=== PATIENT | male | born 1985 | race Caucasian/White ===

== ENCOUNTER 2017-06-13 11:25 | Emergency (ER) | payer SELFPAY ==
[2017-06-13 11:51] VITALS: BP 130/84
--- NOTE | 2017-06-13 12:36 | EDM.PDOC ---
ED HPI GENERAL MEDICAL PROBLEM - General Chief Complaint: ENT Problem Stated Complaint: TOOTH PAIN Time Seen by Provider: 06/13/17 12:31 Source of Information: Reports: Patient, Old Records, RN Notes Reviewed History Limitations: Reports: No Limitations - History of Present Illness INITIAL COMMENTS - FREE TEXT/NARRATIVE: 32-year-old gentleman presents emergency department a complaint of dental pain, he has been working with a dentist and oral surgeon the story was verified his biggest issue is pain control this is tooth #19 which is partially exposed nerve , he is currently working with Dr. Joey Pisano oral surgeon Soniya Jacome currently on amoxicillin 10 day course, Tooth/Teeth Pain Score (Numeric/FACES): 8 - Related Data Allergies Allergy/AdvReac Type Severity Reaction Status Date / Time Sulfa (Sulfonamide Allergy Rash Verified 06/13/17 11:45 Antibiotics) Home Meds: Home Meds Amoxicillin 1 tab PO BID 06/13/17 [History] Past Medical History - Past Health History Medical/Surgical History: Denies Medical/Surgical History Social & Family History - Tobacco Use Smoking Status *Q: Light Tobacco Smoker Years of Tobacco use: 15 Packs/Tins Daily: 0.5 - Recreational Drug Use Recreational Drug Use: No ED ROS ENT - Review of Systems Review Of Systems: See Below Constitutional: Denies: Fever HEENT: Reports: Dental Pain ED EXAM, ENT - Physical Exam Exam: See Below Text/Narrative:: Mouth mucosa is moist and pink no erythema or exudate known soft palate tongue is midline uvula is midline tooth #19 is broken and tender Exam Limited By: No Limitations General Appearance: Alert, WD/WN, No Apparent Distress Head: Atraumatic, Normocephalic Neck: Normal Inspection, Supple, Non-Tender, Full Range of Motion Course - Vital Signs Last Recorded V/S: Last Vital Signs Temp 94.8 F L 06/13/17 11:43 Pulse 67 06/13/17 11:43 Resp 16 06/13/17 11:43 BP 130/84 06/13/17 11:43 Pulse Ox 98 06/13/17 11:43 Departure - Departure Time of Disposition: 12:35 Disposition: Home, Self-Care 01 Condition: Good Clinical Impression: Pain, dental - Discharge Information Forms: ED Department Discharge Additional Instructions: Use Percocet as needed in combination with ibuprofen, please contact your oral surgeon for further follow-up - Assessment/Plan Plan: Assessment Acuity = acute Site and laterality = broken molar #19 Etiology = secondary to caries Manifestations = pain Location of injury = Home Lab values = none Plan Prescription granted for Percocet No. 20 have asked him to contact his oral surgeon for further follow-up Patient was in agreement with the plan all questions were answered, they were instructed to return to the emergency department or call for worsening symptoms. This note was dictated using [employer] voice recognition software please call with any questions.
== END 2017-06-13 12:41 | disposition home or self-care (01) ==
LOC: JP.ED 11:25
DX: K02.9 Dental caries, unspecified (principal); Z88.2 Allergy status to sulfonamides; F17.210 Nicotine dependence, cigarettes, uncomplicated
CPT/HCPCS: 99283

== ENCOUNTER 2019-11-23 16:36 | Emergency (ER) | payer MEDICAID ==
[2019-11-23 16:58] VITALS: BP 127/64; PULSE 58
--- NOTE | 2019-11-23 17:20 | EDM.PDOC ---
ED HPI GENERAL MEDICAL PROBLEM - General Chief Complaint: ENT Problem Stated Complaint: LEFT SIDE CHIPPED TOOTH Time Seen by Provider: 11/23/19 17:05 Source of Information: Reports: Patient, Old Records, RN History Limitations: Reports: No Limitations - History of Present Illness INITIAL COMMENTS - FREE TEXT/NARRATIVE: 34 yo male with a severely decayed L posterior most mandibular molar had it break off last night. Had some early L sided facial swelling start today. No fever. Wants an antibiotic until he can see his dentist. 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) Left Lower Face/Facial Pain Score (Numeric/FACES): 5 - Related Data Allergies Allergy/AdvReac Type Severity Reaction Status Date / Time amoxicillin Allergy Rash Verified 11/23/19 17:01 Sulfa (Sulfonamide Allergy Rash Verified 06/13/17 11:45 Antibiotics) Home Meds: Home Meds Clindamycin HCl 300 mg PO Q8H #30 capsule 11/23/19 [Rx] Past Medical History - Past Health History Medical/Surgical History: Denies Medical/Surgical History Social & Family History - Tobacco Use Smoking Status *Q: Heavy Tobacco Smoker Years of Tobacco use: 15 Packs/Tins Daily: 1 - Caffeine Use Caffeine Use: Reports: Energy Drinks - Recreational Drug Use Recreational Drug Use: No ED ROS ENT - Review of Systems Review Of Systems: See Below Constitutional: Reports: No Symptoms HEENT: Reports: Other (L facial swelling earlier) Respiratory: Reports: No Symptoms Cardiovascular: Reports: No Symptoms GI/Abdominal: Reports: No Symptoms Skin: Reports: No Symptoms Neurological: Reports: No Symptoms ED EXAM, ENT - Physical Exam Exam: See Below Exam Limited By: No Limitations General Appearance: Alert, WD/WN, No Apparent Distress Eye Exam: Bilateral Eye: Normal Inspection Ears: Normal External Exam, Normal Canal, Hearing Grossly Normal, Normal TMs Nose: Normal Inspection, No Blood Mouth/Throat: Other (L posterior molar is broken off and decays. No visible facial swelling now. ) Head: Atraumatic, Normocephalic Neck: Normal Inspection. No: Lymphadenopathy (R), Lymphadenopathy (L) Respiratory/Chest: No Respiratory Distress, Lungs Clear, Normal Breath Sounds, No Accessory Muscle Use Cardiovascular: Regular Rate, Rhythm, No Edema Back: CVA Tenderness (L) Course - Vital Signs Last Recorded V/S: Last Vital Signs Temp 36.6 C 11/23/19 17:02 Pulse 58 L 11/23/19 17:02 Resp 16 11/23/19 17:02 BP 127/64 11/23/19 17:02 Pulse Ox 99 11/23/19 17:02 Departure - Departure Time of Disposition: 17:18 Disposition: Home, Self-Care 01 Condition: Good Clinical Impression: Pain due to dental caries, Dental abscess - Discharge Information *PRESCRIPTION DRUG MONITORING PROGRAM REVIEWED*: No *COPY OF PRESCRIPTION DRUG MONITORING REPORT IN PATIENT CARISSA: No Prescriptions: Clindamycin HCl 300 mg PO Q8H #30 capsule Instructions: Dental Abscess, [id number] Referrals: David Peacock MD [Primary Care Provider] - Additional Instructions: Take clindamycin as directed. Recheck with your dentist nolberto. Use ibuprofen and acetaminophen as needed for pain relief. Sepsis Event Note - Evaluation Sepsis Screening Result: No Definite Risk - Focused Exam Vital Signs: Vital Signs Temp Pulse Resp BP Pulse Ox 11/23/19 17:02 36.6 C 58 L 16 127/64 99 11/23/19 16:57 36.6 C 58 L 16 127/64 99 Date Exam was Performed: 11/23/19 Time Exam was Performed: 17:14
== END 2019-11-23 17:23 | disposition home or self-care (01) ==
LOC: JP.ED 16:36
DX: K04.7 Periapical abscess without sinus (principal); K02.9 Dental caries, unspecified; F17.210 Nicotine dependence, cigarettes, uncomplicated; Z88.2 Allergy status to sulfonamides; Z88.1 Allergy status to other antibiotic agents
CPT/HCPCS: 99283

== ENCOUNTER 2021-05-02 14:12 | Emergency (ER) | payer MEDICAID ==
[2021-05-02 15:06] VITALS: BP 134/77; PULSE 67
--- NOTE | 2021-05-02 15:48 | EDM.PDOC ---
ED HPI GENERAL MEDICAL PROBLEM - General Chief Complaint: ENT Problem Stated Complaint: TOOTH INFECTION Time Seen by Provider: 05/02/21 15:35 Source of Information: Reports: Patient, Old Records, RN History Limitations: Reports: No Limitations - History of Present Illness INITIAL COMMENTS - FREE TEXT/NARRATIVE: 36 yo male is scheduled for a dental extraction of a L posterior/mandibular molar. Starting the beginning of the weekend if has been hurting him more and he has had purulent drainage. No fever. Is getting OK relief with ibuprofen. Onset: Gradual Onset Date: 04/28/21 Duration: Day(s):, Getting Worse Location: Reports: Face (L jaw) Quality: Reports: Ache Severity: Moderate Improves with: Reports: Medication Worsens with: Reports: Other (time) Context: Reports: Other (See HPI) Associated Symptoms: Reports: No Other Symptoms. 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 Left Lower Tooth/Teeth Pain Score (Numeric/FACES): 6 - Related Data Allergies Allergy/AdvReac Type Severity Reaction Status Date / Time amoxicillin Allergy Rash Verified 05/02/21 15:20 Sulfa (Sulfonamide Allergy Rash Verified 05/02/21 15:20 Antibiotics) Home Meds: Home Meds Clindamycin HCl 300 mg PO Q6H #30 capsule 05/02/21 [Rx] Past Medical History - Past Health History Medical/Surgical History: Denies Medical/Surgical History Social & Family History - Tobacco Use Tobacco Use Status *Q: Light Tobacco User Years of Tobacco use: 25 Packs/Tins Daily: 0.5 - Caffeine Use Caffeine Use: Reports: Energy Drinks - Recreational Drug Use Recreational Drug Use: No ED ROS ENT - Review of Systems Review Of Systems: See Below Constitutional: Reports: No Symptoms HEENT: Reports: Dental Pain Respiratory: Reports: No Symptoms Cardiovascular: Reports: No Symptoms Skin: Reports: No Symptoms Neurological: Reports: No Symptoms ED EXAM, ENT - Physical Exam Exam: See Below Exam Limited By: No Limitations General Appearance: Alert, WD/WN, No Apparent Distress Eye Exam: Bilateral Eye: Normal Inspection Ears: Normal External Exam, Normal Canal, Hearing Grossly Normal Nose: Normal Inspection, No Blood Mouth/Throat: Normal Lips, Normal Oropharynx, Other (L posterior most mandibular molar is markedly decayed with some gingival swelling/erythema) Head: Atraumatic, Normocephalic. No: Facial Swelling Neck: Normal Inspection, Supple. No: Lymphadenopathy (R), Lymphadenopathy (L) Course - Vital Signs Last Recorded V/S: Last Vital Signs Temp 36.6 C 05/02/21 15:19 Pulse 67 05/02/21 15:19 Resp 14 05/02/21 15:19 BP 134/77 05/02/21 15:19 Pulse Ox 99 05/02/21 15:19 Departure - Departure Time of Disposition: 15:46 Disposition: Home, Self-Care 01 Condition: Fair Clinical Impression: Dental infection - Discharge Information *PRESCRIPTION DRUG MONITORING PROGRAM REVIEWED*: No *COPY OF PRESCRIPTION DRUG MONITORING REPORT IN PATIENT CARISSA: No Prescriptions: Clindamycin HCl 300 mg PO Q6H #30 capsule Referrals: David Peacock MD [Primary Care Provider] - Additional Instructions: Take clindamycin as directed. For pain use ibuprofen and/or acetaminophen +/- Oragel. Keep your appt for Thurs with your oral surgeon. Recheck as needed. Sepsis Event Note (ED) - Evaluation Sepsis Screening Result: No Definite Risk - Focused Exam Vital Signs: Vital Signs Temp Pulse Resp BP Pulse Ox 05/02/21 15:19 36.6 C 67 14 134/77 99 05/02/21 15:04 36.6 C 67 14 134/77 99
== END 2021-05-02 15:53 | disposition home or self-care (01) ==
LOC: JP.ED 14:12
DX: K04.7 Periapical abscess without sinus (principal); Z88.0 Allergy status to penicillin; Z88.2 Allergy status to sulfonamides; Z72.0 Tobacco use
CPT/HCPCS: 99282